=== PATIENT | female | born 1970 | race Caucasian/White ===

== ENCOUNTER → 2017-03-09 | Outpatient (CLI) | payer BC ==
[~2017-03-09] MED LIST: APRI28 PO; LORA5TAB3 PO
--- NOTE | 2017-03-09 10:10 | DIAGNOSTIC IMAGING REPORT ---
LEFT HIP UNILATERAL 2 VIEWS CLINICAL HISTORY: Left hip pain. COMPARISON STUDY: None. FINDINGS: No fracture or dislocation within the left hip. The visualized pelvic bones are intact. Soft tissues are unremarkable. The left hip cartilage spaces maintained. IMPRESSION: Unremarkable left hip. Electronically signed by: Deshaun Golden M.D. 03/09/2017 10:08 AM Dictated Date/Time: 03/09/2017 10:08 AM
--- NOTE | 2017-03-09 10:11 | DIAGNOSTIC IMAGING REPORT ---
SI JOINTS 3 OR MORE VIEWS CLINICAL HISTORY: Back and sacral pain. COMPARISON STUDY: None. FINDINGS: No fractures identified within the sacrum. Bilateral sacroiliac joints are within normal limits for age. No erosions identified. IMPRESSION: No significant abnormality within the bilateral sacroiliac joints. Electronically signed by: Deshaun Golden M.D. 03/09/2017 10:09 AM Dictated Date/Time: 03/09/2017 10:09 AM
--- NOTE | 2017-03-09 10:12 | DIAGNOSTIC IMAGING REPORT ---
LUMBAR SPINE 5 VIEWS HISTORY: Low back pain. COMPARISON: None. FINDINGS: There is no fracture. No subluxation. Pelvic calcifications are nonspecific but favor phleboliths. Mild facet osteoarthritis at L4-L5 and L5-S1. Mild disc space narrowing at L5-S1. Moderate disc space narrowing and endplate osteophytes at L2-L3. IMPRESSION: No fracture or subluxation within the lumbar spine. Degenerative changes as described above. Electronically signed by: Deshaun Golden M.D. 03/09/2017 10:11 AM Dictated Date/Time: 03/09/2017 10:09 AM
== END | disposition home or self-care (01) ==
LOC: C.RAD 09:29
PROVIDERS: ATTEND Nurse Practitioner
DX: M54.30 Sciatica, unspecified side (principal)

== ENCOUNTER → 2017-03-09 | Outpatient (CLI) | payer BC ==
--- NOTE | 2017-03-09 12:32 | MAMMOGRAPHY REPORT ---
BILATERAL DIGITAL DIAGNOSTIC MAMMOGRAM TOMOSYNTHESIS WITH CAD AND TARGETED RIGHT ULTRASOUND: 7 CLINICAL HISTORY: The patient reports a palpable right breast lump approximately 2 weeks ago, which f eels less prominent currently after starting her menstrual period. TECHNIQUE: Breast tomosynthesis in addition to standard 2D mammography was performed. Current study was also evaluated with a Computer Aided Detection (CAD) system. Bilateral CC and MLO 2-D and tomosy nthesis images were obtained. COMPARISON: Comparison is made to exams dated: 10/08/2013 mammogram, 04/02/2012 mammogram - [facility], and 05/12/2009. BREAST COMPOSITION: There are scattered areas of fibroglandular density in both breasts. FINDINGS: A triangle marker ahmadi the site of the palpable lump in the right 12:00 breast. There ar e no suspicious masses or other suspicious mammographic abnormalities in this region. The remainder of both breasts are stable compared to prior exams, without suspicious masses, calcifications, or are as of architectural distortion noted. Targeted ultrasound was performed of the area of the palpable lump pointed out by the patient. She c ould not pinpoint the exact location of the lump but pointed to the general region in the right 11 to 12:00 breast, approximately 4 cm from the nipple. Ultrasound of this region demonstrates sonographi bar normal tissue without evidence of a suspicious mass or other suspicious sonographic abnormality . IMPRESSION: ACR BI-RADS CATEGORY 1: NEGATIVE, TARGETED ULTRASOUND ACR BI-RADS CATEGORY 1: NEGATIVE No suspicious mammographic or sonographic abnormality at the site of the palpable right breast lump, which feels less prominent to the patient on today's exam. There is no mammographic or targeted sono graphic evidence of malignancy. Recommend clinical follow-up for the right breast lump, and recommen d routine bilateral screening mammograms in one year. The patient has been verbally notified of the results. Approximately 10% of breast cancers are not detected with mammography. A negative mammographic report should not delay biopsy if a clinically suggestive mass is present. Paulina Bolaños M.D. /:03/09/2017 09:16:03 Home Office Claim Specialist: Tresa Prieto, [facility] letter sent: Normal 1/2 BI-RADS Code: ACR BI-RADS Category 1: Negative Ultrasound BI-RADS: ACR BI-RADS Category 1: Negative
== END | disposition home or self-care (01) ==
LOC: C.MAMM 08:49
PROVIDERS: ATTEND Physician Assistant
DX: N63 Unspecified lump in breast (principal); M54.30 Sciatica, unspecified side

== ENCOUNTER → 2017-05-31 | Outpatient (CLI) | payer BC | END | disposition home or self-care (01) | LOC: C.PAPS 09:27 | PROVIDERS: ATTEND Obstetrics & Gynecology | DX: Z01.419 Encounter for gynecological examination (general) (routine) without abnormal findings (principal) ==

== ENCOUNTER → 2017-11-29 | Outpatient (CLI) | payer BC ==
[2017-11-29 12:17] LABS: BASO % 0.4 %; BASO ABS # 0.02 K/uL (0-0.2); EOS % 2.3 %; EOS ABS # 0.13 K/uL (0-0.5); HEMATOCRIT 39.8 % (37-47); HEMOGLOBIN 13.4 g/dL (12.0-16.0); LYMPH % 28.1 %; LYMPH ABS # 1.58 K/uL (1.2-3.4); MEAN CELL VOLUME 96.1 fL (80-100); MEAN CORPUSCULAR HEMOGLOBIN 32.4 pg (25-34); MEAN CORPUSCULAR HGB CONC 33.7 g/dl (32-36); MONO % 11.4 %; MONO ABS # 0.64 K/uL (0.11-0.59); NEUT % 57.8 %; NEUT ABS # 3.26 K/uL (1.4-6.5); PLATELET COUNT 323 K/uL (130-400); RED CELL DISTRIBUTION WIDTH CV 12.8 % (11.5-14.5); RED CELL DISTRIBUTION WIDTH SD 44.8 fL (36.4-46.3); WHITE BLOOD COUNT 5.63 K/uL (4.8-10.8)
[2017-11-29 12:28] LABS: ALBUMIN 4.3 gm/dl (3.4-5.0); ALT/SGPT 27 U/L (12-78); BLOOD UREA NITROGEN 16 mg/dl (7-18); CALCIUM 9.3 mg/dl (8.5-10.1); CARBON DIOXIDE 28 mmol/L (21-32); CHOLESTEROL 203 mg/dl (0-200); CREATININE 0.63 mg/dl (0.60-1.20); GLUCOSE 101 mg/dl (70-99); POTASSIUM 4.3 mmol/L (3.5-5.1); SODIUM 137 mmol/L (136-145)
[2017-11-29 12:37] LABS: ALKALINE PHOSPHATASE 46 U/L (45-117); AST/SGOT 19 U/L (15-37); LDL CHOLESTEROL CALCULATED 110 mg/dl; TOTAL PROTEIN 7.7 gm/dl (6.4-8.2)
== END | disposition home or self-care (01) ==
LOC: C.LABBFT 07:30
PROVIDERS: ATTEND Physician Assistant Medical
DX: R63.5 Abnormal weight gain (principal)

== ENCOUNTER → 2017-11-30 | Outpatient (CLI) | payer BC | END | disposition home or self-care (01) | LOC: C.LABBFT 07:31 | PROVIDERS: ATTEND Physician Assistant Medical | DX: Z00.00 Encounter for general adult medical examination without abnormal findings (principal) ==

== ENCOUNTER → 2017-12-14 | Outpatient (CLI) | payer BC ==
[2017-12-14 12:49] LABS: HEMOGLOBIN A1C 5.6 % (4.5-5.6)
== END | disposition home or self-care (01) ==
LOC: C.LABBFT 09:56
PROVIDERS: ATTEND Physician Assistant Medical
DX: Z00.00 Encounter for general adult medical examination without abnormal findings (principal)

== ENCOUNTER → 2018-04-22 | Outpatient (CLI) | payer BC | END | disposition home or self-care (01) | LOC: C.LABBFT 13:52 | PROVIDERS: ATTEND Internal Medicine | DX: G25.81 Restless legs syndrome (principal) ==

== ENCOUNTER 2020-07-16 06:09 | Observation (INO) ==
--- NOTE | 2020-07-09 15:07 | PAT Medication Instructions ---
Medication Instructions Date of Service July 09, 2020 Home Medications Medication Instructions Recorded furosemide 20 mg tablet 20 mg PO DAILY PRN #90 tab 03/07/19 ropinirole 0.5 mg tablet 0.5 mg PO HS #90 tab 05/07/20 norethindrone acetate 5 mg tablet 5 mg PO DAILY #60 tab 07/07/20 furosemide 20 mg tablet 20 mg PO DAILY PRN Protein Nutritional Shake 1 ea PO QPM Women's Multivitamin 1 tab PO HS multivitamin with minerals [Hair,Skin and Nails] 1 tab PO HS acetaminophen 500 mg tablet 1,000 mg PO BID PRN ibuprofen 200 mg tablet 800 mg PO BID PRN ropinirole 0.5 mg tablet 0.5 mg PO HS norethindrone acetate 5 mg tablet 5 mg PO DAILY ASK your surgeon for instructions ibuprofen 200 mg tablet 800 mg PO BID PRN norethindrone acetate 5 mg tablet 5 mg PO DAILY STOP taking 2 weeks before surgery multivitamin with minerals [Hair,Skin and Nails] 1 tab PO HS STOP taking 24 hours before surgery ropinirole 0.5 mg tablet 0.5 mg PO HS DO NOT take the morning of surgery furosemide 20 mg tablet 20 mg PO DAILY PRN Take morning of surgery With a small sip of water, OTHERWISE NOTHING TO EAT OR DRINK AFTER MIDNIGHT: acetaminophen 500 mg tablet 1,000 mg PO BID PRN (okay to take up to 4 hours prior to surgery if needed) Take evening before surgery Protein Nutritional Shake 1 ea PO QPM Women's Multivitamin 1 tab PO HS acetaminophen 500 mg tablet 1,000 mg PO BID PRN (if needed) Other Notes If you have any questions please call us at [phone] or [phone] or [phone] or [phone]
--- NOTE | 2020-07-12 09:01 | Anesthesiology Consultation ---
Date of Service July 12, 2020 Assessment & Plan (1) Encounter for pre-operative examination: - Per assessment on 07/12: Travel screen negative. No known COVID-19 positive contacts or current COVID-19 related symptoms. Surgeon arranging preop COVID testing. Awaiting results. - Check test AM DOS Chart Review Chart Review: Acceptable Risk for Surgery and Patient seen in Pre Admission Testing Teaching & Discussion Pre-Anesthesia Teaching/Discussion Notes: Instructed NPO after midnight before surgery,except medications with 15 cc of water. Medication instructions provided according to the PAT guidelines. History Surgery Operation Date: 07/16/20 07:30 Proposed Procedures p Robotic Total Laparoscopic Hysterectomy - Nimo Dobbs MD, FACOG Height/Weight Height: 5 ft 4 in Weight: 73.2 kg Allergies Allergy/AdvReac Type Severity Reaction Status Date / Time Penicillins Allergy Intermediate Hives Verified 07/09/20 09:25 Medications Home Medications Medication Instructions Recorded Confirmed Last Taken furosemide 20 mg tablet 20 mg PO DAILY PRN #90 tab 03/07/19 07/09/20 Unknown Protein Nutritional Shake 1 ea PO QPM 08/26/19 07/09/20 09/07/19 08:00 Women's Multivitamin 1 tab PO HS 08/26/19 07/09/20 09/07/19 08:00 multivitamin with minerals 1 tab PO HS 08/26/19 07/09/20 09/07/19 08:00 [Hair,Skin and Nails] acetaminophen 500 mg tablet 1,000 mg PO BID PRN 04/06/20 07/09/20 Unknown ibuprofen 200 mg tablet 800 mg PO BID PRN 04/06/20 07/09/20 Unknown ropinirole 0.5 mg tablet 0.5 mg PO HS #90 tab 05/07/20 07/09/20 Unknown norethindrone acetate 5 mg tablet 5 mg PO DAILY #60 tab 07/07/20 07/09/20 Unknown Past Medical History Medical History Arthritis Chronic back pain Enlarged uterus Restless leg syndrome Exercise / Class Metabolic Activity II 4-5 Yardwork/Stairs/Walk up hill Past Family History Family History Aunt Breast cancer maternal Mother , age 30 Colitis Brother Family hx colonic polyps Father Myocardial infarction Grandmother (Maternal) Ovarian cancer Other Coronary heart disease No family history of adverse response to anesthesia Prostate cancer Past Surgical History Surgical History H/O dilation and curettage History of bilateral tubal ligation History of colonoscopy History of endometrial ablation History of gynecologic surgery Cx cryosurgery History of hysteroscopy History of tooth extraction History of wisdom tooth extraction Status post fine needle aspiration left breast--benign Past Anesthesia History No Hx of Anesthesia Complications and No Family Hx of Anesthesia Complications History of PONV No Hx of PONV and No Hx of Motion Sickness Social History Smoking Status: Never smoker Do You Dip or Chew Tobacco: No Hx Alcohol Use: Yes Alcohol type: beer, wine and hard liquor alcohol intake frequency: a few times a month Hx Substance Use: No substance use type: does not use Review of Systems Patient denies chest pain, shortness of breath, dyspnea on exertion,fever, chills, cough, wheezing, palpitations. Physical Exam Vital Signs VITALS BP 113/71 P 62 TEMP 98.5 SP02 95%RA RESP 16 PHYSICAL Full neck and c-spine range of motion. Full TMJ range of motion. TMD 3.5 finger breaths Mallampati Score 2 Dentition: broken tooth on left lower tooth Lungs: clear throughout to auscultation Cardiac: regular rate and rhythm, no murmurs noted Spine: normal Extremities: no edema Testing Laboratory Results 07/12/20 09:15 07/12/20 09:15 Blood Type A Positive 07/12/20 09:15 Antibody Screen NEGATIVE 07/12/20 09:15 Electrocardiogram Date: 07/12/20 Findings: + SB @ (50)
[2020-07-12 11:00] LABS: Basophils # (auto) 0.02 K/uL (0-0.2); Basophils % (auto) 0.5 %; Eosinophils # (auto) 0.13 K/uL (0-0.5); Hematocrit (blood only) 37.7 % (37-47); Hemoglobin 12.8 g/dL (12.0-16.0); Lymphocytes # (auto) 1.71 K/uL (1.2-3.4); Mean Corpuscular Hemoglobin 32.8 pg (25-34); Mean Corpuscular Volume 96.7 fL (80-100); Mean Platelet Volume 10.1 fL (7.4-10.4); Monocytes # (auto) 0.55 K/uL (0.11-0.59); Monocytes % (auto) 12.5 %; Neutrophils # (auto) 1.98 K/uL (1.4-6.5); Platelet Count 330 K/uL (130-400); RDW Coefficient of Variation 12.7 % (11.5-14.5); RDW Standard Deviation 44.4 fL (36.4-46.3); White Blood Count 4.39 K/uL (4.8-10.8)
--- NOTE | 2020-07-12 11:18 | Electrocardiogram Report ---
Test Reason : Blood Pressure : / mmHG Vent. Rate : 050 BPM Atrial Rate : 050 BPM P-R Int : 146 ms QRS Dur : 098 ms QT Int : 414 ms P-R-T Axes : 041 073 051 degrees QTc Int : 377 ms Sinus bradycardia Otherwise normal ECG When compared with ECG of 17-DEC-2013 10:51, No significant change was found Confirmed by Micah Pino ([id number]) on 07/12/2020 11:17:37 AM Referred By: Nimo Dobbs Confirmed By:Dylan Pino
[2020-07-12 11:39] LABS: BUN Creatinine Ratio 10.4 (10-20); Calcium 9.2 mg/dl (8.5-10.1); Creatinine Clr Calc Pharmacy 93.5 ml/min; Est GFR (Non-African American) 100.1; Potassium 4.4 mmol/L (3.5-5.1)
[~2020-07-16 06:09] MED LIST changes: -APRI28 PO; +CIPROFLOXACIN / D5W 400 MG/200 ML BAG IV SCH; +LACTATED RINGER'S 1,000 ML IV SCH; -LORA5TAB3 PO; +LR 15ML/HR IV SCH; +metroNIDAZOLE 500 MG/100 ML BAG IV SCH
[2020-07-16] MEDS ORDERED: MIDAZOLAM HCL 1 MG/ML 2ML VIAL ONE (06:51)
[2020-07-16] MEDS ORDERED: fentaNYL citrate 100 MCG/2 ML VIAL ONE (06:51)
[2020-07-16] MEDS ORDERED: PROPOFOL IV EMULSION 10 MG/ML 20 ML VIAL IV ONE (06:51)
[2020-07-16] MEDS ORDERED: ONDANSETRON INJ 2 MG/ML 2 ML VIAL ONE (06:52)
[2020-07-16] MEDS ORDERED: DEXAMETHASONE SOD INJ 4 MG/ML VIAL ONE (06:52)
[2020-07-16] MEDS ORDERED: LIDOCAINE HCL 2% 2 ML VIAL/AMP(20MG/ML) INFIL ONE (06:52)
[2020-07-16] MEDS ORDERED: ROCURONIUM BROMIDE 10 MG/ML 5 ML VIAL IV ONE (06:52)
[2020-07-16] MEDS ORDERED: GLYCOPYRROLATE 0.2 MG/ML VIAL ONE (06:59)
[2020-07-16] MEDS ORDERED: NEOSTIGMINE METHYLSULFATE 5 MG/5 ML SYR ONE (06:59)
[2020-07-16] MEDS ORDERED: BUPIVACAINE 0.5 % 5 MG/1 ML MPF 30ML VIAL ONE (07:01)
--- NOTE | 2020-07-16 07:17 | History & Physical Bridge Note ---
Date of Service July 16, 2020 History & Physical Bridge Note I have examined the patient, reviewed the History & Physical and in the interval since the performance of the History & Physical I have noted the following changes of clinical significance: no changes noted
[2020-07-16] MEDS ORDERED: METHYLENE BLUE 0.5% 10 ML VIAL ONE (08:46)
[2020-07-16] MEDS ORDERED: HYDROmorphone INJ 2 MG/ML SYR/VIAL ONE (08:46)
[2020-07-16] MEDS ORDERED: PROMETHAZINE HCL 12.5 MG in SODIUM CHLORIDE 0.9% 50 ML IV PRN ×2 (09:20→12:22)
[2020-07-16] MEDS ORDERED: ePHEDrine sulfate 50 MG/ML AMP IV PRN (09:20)
[2020-07-16] MEDS ORDERED: METOCLOPRAMIDE HCL INJ 5 MG/ML 2 ML VIAL IV PRN (09:20)
[2020-07-16] MEDS ORDERED: ATROPINE SULFATE 0.1 MG/ML 10ML SYR IV PRN (09:20)
[2020-07-16] MEDS ORDERED: TISSEEL FIBRIN SEALANT 4ML TOP ONE (09:42)
--- NOTE | 2020-07-16 10:26 | Operative Report ---
PG Post Operative Report Pre & Post Diagnosis Operation Date: 07/16/20 07:30 Pre-Op Diagnosis: Abnormal Menses, Menorrhagia, Left ovarian Cyst Post-Op Diagnosis: Abnormal Menses, Menorrhagia, Left ovarian Cyst I identified the patient and participated in the time-out.: Yes Procedure Operation Date: 07/16/20 07:30 Actual Procedures p Robotic Assisted Total Laparoscopic Hysterectomy Bilateral Salpingectomy Left Oophorectomy with Excite Procedure, Cystoscopy(Not Applicable) - Nimo Dobbs MD, FACOG Surgeon Nimo Dobbs MD, FACOG Wire Coiler . Estimated Blood Loss 20 Findings Consistent with Post-Op Diagnosis Specimens Uterus right fallopian tube left adnexa cervix Description of Procedure Patient was given a general anesthetic, prepped and draped in dorsal lithotomy position in yellow fin evie stirrups. Care was taken to position the legs and arms properly with no excess pressure on any area. Pre-operative antibiotics were given and SCDs applied earlier. Joiner catheter was inserted into her bladder, V-Care manipluator was placed in the uterus and sutured in place. Gloves were changed and then a supra-umbilical incision was made with scalpel, using Marta technique, we dissected through the subcutaneous fat, fascia, split the rectus muscles and then entered the peritoneal cavity.. Blunt tip Marta Trochar then inserted and balloon inflated to stabilize the port. CO2 gas was then used to insufflate the peritoneal cavity. Findings. Enlarged uterus consistent with the estimate over 500 cm on ultrasound left ovarian cyst approximately 6 cm benign-appearing Deep tendelenberg position was obtained. 2 robotic ports were then placed, one on the left, one on the right side under direct visualization. 11mm bladeless accessory port placed in left upper quadrant under direct visualization. Robot docked. Arm #1 Monopolar janet, arm #2 Bipolar Maryland grasper. Fallopian tubes were identified and removed with the monoplar janet and removed thru the accessory port. Ureter was identified on each side and followed a normal course. Distal to the left ovary, the blood supply was coagulated with the bipolar Maryland and then cut with Janet. We were well away from the ureter. Round ligament was coagulated and then cut. Uterine vessels were then skeletonized, bladder flap was sharply dissected away with janet. Uterine vessels were then coagulated close to the cervix staying away from the left ureter. Vessels then cut. The exact same process was repeated on the right side taking note of the location of the right ureter at all times. Colpotomy was then performed with the monopolar janet, once completed, the specimen was removed through the vagina. A sponge in a glove was then placed in the vagina to maintain pneumoperitoneum. The specimen was too large to remove through the vagina as we placed in the upper quadrant of the peritoneal cavity. Instrument exchange then occurred. Arm #1 became the MERCEDEZ needle tank wagon driver, Arm # 2 became the tagga Grasper. 12 inch 2-0 V-Lock 90 day suture was placed through the accessory port. Cuff was closed from left to right, then back taking at least 1cm full thickness bites of vaginal mucosa. Suture was cut so there was no tail, needle removed through the accessory port. Sponge removed from the vagina and seal air tight. Generous irrigation and suction, hemostasis excellent, Tisseal applied to pedicles. Cystoscopy performed and no injury to the bladder, no sutures noted, good strong jets of blue colored dye were noted from both right and left ureter openings. Cystoscope removed and a new joiner catheter placed. Robot undocked, We then using a 5 mm laparoscope placed the larger umbilical port by first removing the Lara port under direct visualization a large specimen bag was then placed to this the specimen was grasped including the ovary which was attached to it into and placed into the bag at this stage we then were able to bring the specimen up to the umbilical incision a Kush retractor was placed within and then we used the excite technique to remove the specimen. This was done carefully methodically there were no perforations in the bag we ensured all material was removed from the bag and there was no damage to surrounding structures using the laparoscope to visualize after removal of the bag and the Kush retractor were removed. We did relook at the pelvis it was hemostatic at the vascular pedicle sites and at this stage removed all the ports gas was allowed to escape incisions injected with 0.5% Marcaine fascia closed with 0 Vicryl with a running suture in the umbilical incision as this fascia had been opened slightly to allow removal of the specimen. Suture stay ties were also tied over this and deep subcutaneous stitch into the left upper quadrant accessory port. 4 oh subicular Monocryl closures Dermabond applied urine clear at the end of the procedure , ports removed. gas allowed to escape. Incisions injected with Marcaine, fascia closed in the umbilical and a deep stitch into the accessory port with 0-Vicryl. . Sponge and instrument counts correct. I attest to the content of the Intraoperative Record and any orders documented therein. Any exceptions are noted below. Procedure Pre-op/Post-op diagnoses: Pre-Op/Post-Op Diagnoses Operation Date: 07/16/20 07:30 Pre-Op Diagnosis: Abnormal Menses, Menorrhagia, Left ovarian Cyst Post-Op Diagnosis: Abnormal Menses, Menorrhagia, Left ovarian Cyst Procedure: Procedures Operation Date: 07/16/20 07:30 Actual Procedures Side Surgeon p Robotic Assisted Total Laparoscopic Hysterectomy Bilateral Salpingectomy Left Oophorectomy with Excite Procedure, Cystoscopy Note, uterus much greater than 250g, and left salpingo-oophorectomy Not Applicable Nimo Dobbs MD, FACOG
[2020-07-16] MEDS: fentaNYL citrate 100 MCG/2 ML VIAL IV PRN ×2 (11:01→11:06)
[2020-07-16] MEDS: HYDROmorphone INJ 2 MG/ML SYR/VIAL IV PRN ×3 (11:11→11:21)
[2020-07-16] MEDS: ONDANSETRON INJ 2 MG/ML 2 ML VIAL IV PRN ×2 (11:15→11:22)
[2020-07-16] MEDS: LACTATED RINGER'S 1,000 ML IV SCH ×2 (12:00→21:04)
--- NOTE | 2020-07-16 12:06 | Anesthesiology Progress Note ---
Date of Service July 16, 2020 Anesthesia Post Procedure Vital Signs Vital Signs: Temp Pulse Pulse Resp BP BP Pulse Ox 07/16/20 11:50 36.8 C 70 16 105/62 99 07/16/20 11:40 36.8 C 57 L 16 111/66 97 07/16/20 11:30 36.8 C 68 12 128/69 99 07/16/20 11:20 57 L 17 124/62 100 07/16/20 11:10 62 17 135/69 97 07/16/20 11:00 68 16 130/75 98 07/16/20 10:50 75 16 124/71 100 07/16/20 10:40 85 14 136/72 100 07/16/20 10:33 36.4 C L 75 10 L 133/78 100 07/16/20 06:58 37.0 C 75 20 133/84 100 Pain Intensity Abdomen: Pain Intensity: 3 Transfer of Care Handoff Completed per policy Notes Mental Status: alert / awake / arousable and participated in evaluation Patient Amnestic to Procedure: Yes Nausea / Vomiting: adequately controlled Pain: adequately controlled Airway Patency, RR, SpO2: stable & adequate BP & HR: stable & adequate Hydration State: stable & adequate Anesthetic Complications: no major complications apparent
[2020-07-16] MEDS ORDERED: bisacodyL 10 MG SUPP PR PRN (12:22)
[2020-07-16] MEDS ORDERED: MEPERIDINE HCL 50 MG/ML CARP IV PRN (12:22)
[2020-07-16] MEDS ORDERED: ZOLPIDEM TARTRATE 5 MG TAB PO PRN (12:22)
[2020-07-16] MEDS ORDERED: oxyCODONE/ACETAMINOPHEN 5mg/325mg TAB PO PRN ×2 (12:22)
[2020-07-16] MEDS ORDERED: KETOROLAC 30 MG/ML VIAL IV PRN (12:22)
[2020-07-16] MEDS ORDERED: MAGNESIUM HYDROXIDE SUSP 30 ML UDC PO PRN (12:22)
[2020-07-16] MEDS ORDERED: ONDANSETRON INJ 2 MG/ML 2 ML VIAL IV PRN (12:22)
[2020-07-16] MEDS: IBUPROFEN 600 MG TAB PO PRN ×2 (17:20→21:08)
[2020-07-16] MEDS ORDERED: ACETAMINOPHEN 325 MG TAB PO PRN (19:22)
[2020-07-16 20:23] LABS: Hematocrit (blood only) 32.6 % (37-47); Hemoglobin 10.9 g/dL (12.0-16.0)
[2020-07-16] MEDS: DOCUSATE SODIUM 100 MG CAP PO SCH (21:03)
[2020-07-17] MEDS: IBUPROFEN 600 MG TAB PO PRN (01:44)
[2020-07-17 06:32] LABS: Basophils # (auto) 0.01 K/uL (0-0.2); Basophils % (auto) 0.1 %; Eosinophils # (auto) 0.02 K/uL (0-0.5); Eosinophils % (auto) 0.2 %; Hemoglobin 10.7 g/dL (12.0-16.0); Immature Granulocytes # (auto) 0.02 K/uL (0.00-0.02); Immature Granulocytes % (auto) 0.2 %; Lymphocytes # (auto) 1.95 K/uL (1.2-3.4); Lymphocytes % (auto) 16.9 %; Mean Corpuscular Hemoglobin 32.5 pg (25-34); Mean Corpuscular Hgb Conc 33.4 g/dL (32-36); Mean Corpuscular Volume 97.3 fL (80-100); Mean Platelet Volume 9.5 fL (7.4-10.4); Monocytes # (auto) 1.12 K/uL (0.11-0.59); Monocytes % (auto) 9.7 %; Neutrophils % (auto) 72.9 %; Platelet Count 270 K/uL (130-400); RDW Coefficient of Variation 12.9 % (11.5-14.5); RDW Standard Deviation 46.1 fL (36.4-46.3); Red Blood Count 3.29 M/uL (4.2-5.4); White Blood Count 11.52 K/uL (4.8-10.8)
--- NOTE | 2020-07-17 07:49 | Gynecologic Progress Note ---
Date of Service July 17, 2020 Assessment & Plan Admission and Anticipated Discharge Date Admission Date: July 16, 2020 Subjective Postop day #1 from total laparoscopic hysterectomy the patient is feeling well she is ambulating tolerating an oral diet she is voiding well and around passing gas she has no extremity pain her pain in her abdomen is well controlled she has no vaginal bleeding Physical exam vital signs are stable she is afebrile abdomen is soft and nontender good bowel sounds extremity exam is negative incisions clean dry and intact Impression plan discharge home reviewed instructions patient to contact us with any concerns Results & Data ([facility]) Vital Signs (Past 12 Hours) Vital Signs Temp Pulse Resp BP Pulse Ox 07/17/20 00:20 98.8 F 69 16 106/62 95 07/16/20 19:50 97.7 F 64 18 123/74 98 PG Care Time/CCT Total # of Minutes Spent Total Time Spent with Patient: Total time spent is greater than 50% in coordination of care (as documented) at patient's floor/unit and/or counseling patient: Coding Level of Care Code None
[2020-07-17] MEDS: DOCUSATE SODIUM 100 MG CAP PO SCH (09:18)
--- NOTE | 2020-07-20 07:26 | Discharge Summary ---
Date of Service July 20, 2020 Admission HPI Per Admitting Provider Patient had a total laparoscopic hysterectomy on July 16 this was uncomplicated the patient met discharge criteria the next day Discharge Data Procedures Performed Operation Date: 07/16/20 07:30 Actual Procedures p Robotic Assisted Total Laparoscopic Hysterectomy Bilateral Salpingectomy Left Oophorectomy with Excite Procedure(Not Applicable) - Nimo Dobbs MD, AURA s Cystoscopy(Not Applicable) - Nimo Dobbs MD, FACOG Hospital Course (1) Abnormal menses: By postoperative day number 1 in the morning the patient was ambulating tolerating an oral diet she had minimal pain she had no extremity pain no bleeding she was voiding well she met discharge criteria discharge instructions were carefully reviewed with the patient patient was told to contact the office for follow-up and call sooner with any problems Coding Level of Care Code None Diagnoses Abnormal menses N92.6
== END 2020-07-17 09:20 | disposition home or self-care (01) ==
LOC: ASU 06:09 → 4N 06:09

== ENCOUNTER 2023-12-01 08:31 | Observation (INO) ==
--- NOTE | 2023-12-01 09:11 | Emergency Department Note ---
Impression & Plan Syncope and collapse, Colitis, Leukocytosis ED Provider Note HISTORY OF PRESENT ILLNESS: Patient is a 53-year-old female presenting with lower abdominal cramping and bright red bloody bowel movements. Patient reports that last night her and her had gone out to dinner and when they returned home she started having cramping and spasming of her lower abdomen and felt like she had to run to the bathroom. She reportedly got on the commode and then had a syncopal episode in which she fell face first onto the ground. Patient reports she woke up on the ground and then was able to get back on the commode. She states that she was feeling generally unwell throughout the night and had multiple bright red bloody bowel movements. She reports that she got up at 3 AM to have a bowel movement and she again passed out. She is currently complaining of cramping pain diffusely across her lower abdomen. She is not currently on any anticoagulation. However, she has been taking around 1800 mg of ibuprofen daily for the last month for plantar fasciitis treatment. She is also complaining of a burning sensation in her substernal region. Denies any shortness of breath. Denies any significant nausea at this time. She had a colonoscopy 1.5 months ago in which polyps were removed. She denies any abdominal surgical history other than a hysterectomy. ROS: as above PHYSICAL EXAM: Constitutional: Patient appears in no acute distress. HENT: Head: Normocephalic and atraumatic. Eyes: EOMI, PERRL Mouth/Throat: Mucous membranes moist. Neck: Trachea midline. Neck supple. Cardiovascular: RRR, No murmurs, rubs or gallops. Intact distal pulses. Pulmonary/Chest: No respiratory distress. Breath sounds clear and equal bilaterally. No wheezes or rales. Abdominal: Abdomen soft, no tenderness, rebound or guarding. Musculoskeletal: No edema, tenderness or deformity noted. Skin: Warm and dry. No rash, erythema, pallor or cyanosis Psychiatric: Appropriate mood and affect for situation. Neurological: Alert and keenly responsive. CN II-XII grossly intact, moving all extremities equally and fully. MDM: - Vitals signs stable. - History obtained via patient. History as above. - Chronic conditions affecting care: DM-2 - Differential diagnoses include, but are not limited to: ACS; dysrhythmia; diverticular bleed; anemia; electrolyte abnormality; dehydration; hemorrhoidal bleed - Order placed for continuous cardiac monitoring. At this time, monitor showed rate of 71 bpm with normal sinus rhythm, per my interpretation. - External medical records reviewed. Primary care visit note dated 10/25/2023 was reviewed. Patient was started on omeprazole at her clinic appointment, given her heartburn symptoms and use of ibuprofen. - EKG interpreted by myself showed normal sinus rhythm. Rate 65 bpm. QT 394. No acute ischemic changes. - Laboratory workup interpreted by myself showed leukocytosis (WBC 14.89) with left shift; normal PT/INR; stable hemoglobin; stable electrolytes; normal troponin; normal lipase - CXR negative for pneumonia, per my interpretation. - CTA abdomen/pelvis showed non-specific colitis of transverse colon. - Patient given 1L NS and 40 mg IV pantoprazole in ER. - Discussed results with patient. Given her multiple episodes of syncope, will admit to hospitalist service. - Discussion was had with case management associate about patient's case and need for admission - Hospitalist, Dr. Avendano, consulted for admission - Patient admitted to [facility] hospitalist service for further evaluation and management. ASSESSMENT AND PLAN: Diagnosis: syncope and collapse; colitis; leukocytosis Plan: admit Past Med/Surg History Medical History (Updated 12/01/23 @ 12:31 by Deena De Anda MD) Hot flashes History of COVID-19 2019- no hosp; resolved Prediabetes pt unaware Arthritis Chronic back pain Restless leg syndrome Surgical History History of robot-assisted laparoscopic hysterectomy History of colonoscopy H/O dilation and curettage History of gynecologic surgery Cx cryosurgery Status post fine needle aspiration left breast--benign History of bilateral tubal ligation History of tooth extraction History of wisdom tooth extraction History of endometrial ablation History of hysteroscopy Family History Aunt Breast cancer Mother Colitis Brother Family hx colonic polyps Father Myocardial infarction Grandmother (Maternal) Ovarian cancer Other Coronary heart disease No family history of adverse response to anesthesia Prostate cancer Social History Smoking Status: Never smoker Second Hand Exposure: Yes ( smoked/father smoked); Do You Dip or Chew Tobacco: No; Hx Alcohol Use: No Hx Substance Use: No Preferred Language: Vietnamese Communication Ability: Effective 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: No Beliefs That Will Affect Care: None marital status: Current Living Situation: Spouse Current Living Situation Comment: Lives with and 3 kids current occupational status: employed 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 Feels Safe at Home: Yes Dental Care, Regularly: Yes Physical Activity Frequency: 5-6 Times per Week Assistive Devices: None Allergies Allergies Allergy/AdvReac Type Severity Reaction Status Date / Time Penicillins Allergy Intermediate Hives Verified 12/01/23 09:26 cortisone Allergy RASH/RESTLESSNESS/NUMBNESS Verified 12/01/23 09:26 OF LIPS & NOSE Home Meds Home Medications Medication Instructions Recorded Confirmed acetaminophen 500 mg tablet 1,000 mg PO Q6H PRN Pain 08/19/20 12/01/23 (Tylenol Extra Strength) ibuprofen 200 mg tablet 600 mg PO TID Foot Pain 08/19/20 12/01/23 multivitamin 1 tab PO DAILY 04/12/23 12/01/23 magnesium 250 mg tablet 250 mg PO HS 10/04/23 12/01/23 metformin 500 mg tablet 500 mg PO BID 12/01/23 12/01/23 Previous Rx's Medication Instructions Recorded omeprazole 20 mg capsule,delayed 20 mg PO DAILY #90 caps 10/26/23 release Results & Data (ED) Vital Signs Vital Signs - 24 hr 12/01/23 08:40 12/01/23 08:51 12/01/23 08:58 Temperature 36.4 C L Temperature Source Oral Pulse Rate 78 70 Pulse Rhythm Respiratory Rate 16 Respiratory Effort / Characteristics Non-Labored Respiratory Depth Normal Blood Pressure 130/78 Blood Pressure Mean 95 Pulse Oximetry 100 Oxygen Delivery Method Room Air Room Air Sepsis Recent Fever Within 48 Hours No Sepsis New/Unexplained Change in Mental Status N/A Sepsis Action Taken by Nursing No Action Required 12/01/23 09:00 12/01/23 09:17 12/01/23 10:00 Temperature Temperature Source Pulse Rate 73 68 71 Pulse Rhythm Regular Respiratory Rate 19 12 23 Respiratory Effort / Characteristics Respiratory Depth Blood Pressure 122/71 132/74 Blood Pressure Mean 88 93 Pulse Oximetry 99 98 97 Oxygen Delivery Method Room Air Room Air Room Air Sepsis Recent Fever Within 48 Hours Sepsis New/Unexplained Change in Mental Status Sepsis Action Taken by Nursing Laboratory Data 12/01/23 09:01 12/01/23 09:01 Lab Results 12/01/23 12/01/23 Range/Units 09:01 09:15 WBC 14.89 H (4.8-10.8) K/ul RBC 4.26 (4.20-5.40) M/uL Hgb 13.4 (12.0-16.0) g/dl Hct 39.7 (37.0-47.0) % MCV 93.2 (80.0-100.0) fL MCH 31.5 (25.0-34.0) pg MCHC 33.8 (32.0-36.0) g/dL RDW Std Deviation 40.7 (36.4-46.3) fL RDW Coeff of Francisca 11.9 (11.5-14.5) % Plt Count 328 (130-400) K/uL MPV 9.6 (9.4-12.4) fL Immature Gran % (Auto) 0.4 % Neut % (Auto) 82.2 % Lymph % (Auto) 10.1 % Evans % (Auto) 7.1 % Eos % (Auto) 0.1 % Baso % (Auto) 0.1 % Neut # (Auto) 12.24 H (1.40-6.50) K/uL Lymph # (Auto) 1.51 (1.20-3.40) K/uL Evans # (Auto) 1.05 H (0.11-0.59) K/uL Eos # (Auto) 0.01 (0.00-0.50) K/uL Baso # (Auto) 0.02 (0.00-0.20) K/uL Immature Gran # (Auto) 0.06 (0.01-0.20) K/uL PT 10.4 (9.0-12.0) Seconds INR 0.9 (0.9-1.1) APTT 24 (21-31) Seconds PTT Ratio 0.9 Sodium 137 (136-145) mmol/L Potassium 4.6 (3.5-5.1) mmol/L Chloride 105 (98-107) mmol/L Carbon Dioxide 26 (21-32) mmol/L Anion Gap 6 (3-11) BUN 23 (6-23) mg/dl Creatinine 0.59 L (0.6-1.2) mg/dl Est Cr Clr Drug Dosing 110.1 ml/min Est GFR ( Amer) 119.6 ml/min Est GFR (Non-Af Amer) 103.2 ml/min BUN/Creatinine Ratio 39.0 H (10-20) Glucose 135 H (70-99(Fasting)) mg/dl Calcium 9.5 (8.6-10.3) mg/dl Total Bilirubin 0.3 (0.2-1.0) mg/dl AST 18 (13-39) U/L ALT 16 (7-52) U/L Alkaline Phosphatase 76 (34-104) U/L Troponin I High Sens 2.7 (0-14) pg/ml Total Protein 7.8 (6.0-8.3) gm/dl Albumin 4.8 (3.4-5.0) gm/dl Globulin 3.0 (2.5-4.0) gm/dl Albumin/Globulin Ratio 1.6 (0.9-2) Lipase 35 (11-82) U/L Blood Type A Positive Antibody Screen NEGATIVE Administered Medications Discontinued Medications Pantoprazole Sodium 40 mg/ (Syringe) 10 mls @ 5 mls/min IV NOW ONE Stop: 12/01/23 09:07 Last Admin: 12/01/23 09:30 Dose: 5 mls/min Documented By: PAOLA Sodium Chloride (Nss) 1,000 mls @ 999 mls/hr IV .Q1H1M ASH Stop: 12/01/23 10:15 Last Infusion: 12/01/23 10:31 Dose: Infused Documented By: Admin: 12/01/23 09:25 Dose: 999 mls/hr Documented By: PAOLA Ioversol (Optiray 350 500ml) 113 ml IV ONCE ONE Stop: 12/01/23 09:53 Last Admin: 12/01/23 09:55 Dose: 113 ml Documented By: CHU Imaging Data Radiologist's Impression: Abdomen/Pelvis CTA 12/01/23 09:06 CT ANGIOGRAPHY OF THE ABDOMEN AND PELVIS CLINICAL HISTORY: Multiple episodes of grossly blood stool; syncope. COMPARISON STUDY: Arterial phase images of the liver, spleen, adrenal glands and kidneys Automated exposure control was utilized for the study. A dose lowering technique was utilized adhering to the principles of ALARA. FINDINGS: Lung bases are normal. The caliber of the abdominal aorta is normal. No pathologic right plaque is identified. The celiac axis, superior mesenteric artery, inferior mesenteric artery, renal arteries, bilateral common iliac, internal iliac, external iliac and common femoral arteries are patent. There is no stenosis or dissection within these vessels. There is no aneurysm within the abdomen or pelvis. Arterial phase images of the liver, spleen, adrenal glands, kidneys and pancreas are unremarkable. There is no biliary or pancreatic ductal dilatation. There is no hydronephrosis. There is no evidence for a bowel obstruction. The appendix is normal. There is moderate circumferential wall thickening of the majority of the transverse colon with minimal pericolonic stranding. This wall thickening extends for 13 cm. There is no free air or abscess. No additional sites of bowel wall thickening are present. Pelvic calcifications represent phleboliths. There is no lymphadenopathy. IMPRESSION: 1. Wall thickening of the transverse colon with minimal pericolonic stranding. This suggests a nonspecific colitis which could be infectious, ischemic or inflammatory in etiology. No free air or abscess. A precautionary nonemergent colonoscopy, if not recently performed, is recommended to exclude the unlikely possibility of an underlying mucosal lesion. 2. No additional sites of bowel wall thickening. Normal appendix. No bowel obstruction. 3. Normal caliber abdominal aorta with patent branch vessels. No dissection or aneurysm within the abdomen or pelvis. ACT 112: Negative or not required by law. Electronically signed by: Gaudencio Prasad M.D. 12/01/2023 10:08 AM Chest X-Ray 12/01/23 09:06 XR chest 1V portable CLINICAL HISTORY: Syncope. COMPARISON STUDY: Chest radiograph August 19, 2020. FINDINGS: Lung volumes are normal. Lungs are clear. There is no pneumothorax or pleural effusion. Cardiac size is normal. Mediastinal contours are normal. There is no evidence for pulmonary edema. IMPRESSION: No acute cardiopulmonary findings. ACT 112: Negative or not required by law. Electronically signed by: Gaudencio Prasad M.D. 12/01/2023 9:43 AM Discharge Plan Visit Data Chief Complaint: Rectal Bleed Stated Complaint: SYNCOPE, RECTAL BLEED ED Provider: Deena De Anda Discharge Problem: Syncope and collapse, Colitis, Leukocytosis Forms Stand Alone Forms: [facility] Orche[employer] Prescriptions Prescriptions: No Action omeprazole 20 mg capsule,delayed release(DR/EC) 20 mg PO DAILY Qty: 90 0RF ibuprofen 200 mg Tablet 600 mg PO TID acetaminophen [Tylenol Extra Strength] 500 mg Tablet 1,000 mg PO Q6H PRN (Reason: Pain) multivitamin Tablet 1 tab PO DAILY magnesium 250 mg Tablet 250 mg PO HS metformin 500 mg Tablet 500 mg PO BID Referrals Referrals: Florida Hernandez DO [Primary Care Provider] -
[2023-12-01 09:24] LABS: Basophils # (auto) 0.02 K/uL (0.00-0.20); Basophils % (auto) 0.1 %; Eosinophils # (auto) 0.01 K/uL (0.00-0.50); Eosinophils % (auto) 0.1 %; Hematocrit (blood only) 39.7 % (37.0-47.0); Hemoglobin 13.4 g/dl (12.0-16.0); Immature Granulocytes # (auto) 0.06 K/uL (0.01-0.20); Immature Granulocytes % (auto) 0.4 %; Lymphocytes # (auto) 1.51 K/uL (1.20-3.40); Lymphocytes % (auto) 10.1 %; Mean Corpuscular Hemoglobin 31.5 pg (25.0-34.0); Mean Corpuscular Hgb Conc 33.8 g/dL (32.0-36.0); Mean Corpuscular Volume 93.2 fL (80.0-100.0); Mean Platelet Volume 9.6 fL (9.4-12.4); Monocytes # (auto) 1.05 K/uL (0.11-0.59); Monocytes % (auto) 7.1 %; Neutrophils # (auto) 12.24 K/uL (1.40-6.50); Neutrophils % (auto) 82.2 %; Platelet Count 328 K/uL (130-400); RDW Coefficient of Variation 11.9 % (11.5-14.5); RDW Standard Deviation 40.7 fL (36.4-46.3); Red Blood Count 4.26 M/uL (4.20-5.40); White Blood Count 14.89 K/ul (4.8-10.8)
[2023-12-01] MEDS: SODIUM CHLORIDE 0.9% 1,000 ML IV SCH (09:25)
[2023-12-01] MEDS: PANTOprazole 40 MG in SYRINGE 0 ML IV ONE (09:30)
[2023-12-01 09:33] LABS: Albumin Globulin Ratio 1.6 (0.9-2); Albumin Level 4.8 gm/dl (3.4-5.0); Bilirubin,Total 0.3 mg/dl (0.2-1.0); Calcium 9.5 mg/dl (8.6-10.3); Creatinine Clr Calc Pharmacy 110.1 ml/min; Est GFR (African American) 119.6 ml/min; Est GFR (Non-African American) 103.2 ml/min; Potassium 4.6 mmol/L (3.5-5.1); Total Protein 7.8 gm/dl (6.0-8.3)
[2023-12-01 09:38] LABS: Troponin I High Sensitivity 2.7 pg/ml (0-14)
[2023-12-01 09:45] LABS: INR 0.9 (0.9-1.1); Partial Thromboplastin Ratio 0.9; Partial Thromboplastin Time 24 Seconds (21-31); Prothrombin Time 10.4 Seconds (9.0-12.0)
--- NOTE | 2023-12-01 09:45 | XRay Report ---
XR chest 1V portable CLINICAL HISTORY: Syncope. COMPARISON STUDY: Chest radiograph August 19, 2020. FINDINGS: Lung volumes are normal. Lungs are clear. There is no pneumothorax or pleural effusion. Car diac size is normal. Mediastinal contours are normal. There is no evidence for pulmonary edema. IMPRESSION: No acute cardiopulmonary findings. ACT 112: Negative or not required by law. Electronically signed by: Gaudencio Prasad M.D. 12/01/2023 9:43 AM
[2023-12-01] MEDS: OPTIRAY 350 500ml IV ONE (09:55)
--- NOTE | 2023-12-01 10:10 | CT Scan Report ---
CT ANGIOGRAPHY OF THE ABDOMEN AND PELVIS CLINICAL HISTORY: Multiple episodes of grossly blood stool; syncope. COMPARISON STUDY: Arterial phase images of the liver, spleen, adrenal glands and kidneys Automated e xposure control was utilized for the study. A dose lowering technique was utilized adhering to the p rinciples of HARDY. FINDINGS: Lung bases are normal. The caliber of the abdominal aorta is normal. No pathologic right pl aque is identified. The celiac axis, superior mesenteric artery, inferior mesenteric artery, renal ar teries, bilateral common iliac, internal iliac, external iliac and common femoral arteries are patent . There is no stenosis or dissection within these vessels. There is no aneurysm within the abdomen or pelvis. Arterial phase images of the liver, spleen, adrenal glands, kidneys and pancreas are unremar kable. There is no biliary or pancreatic ductal dilatation. There is no hydronephrosis. There is no e vidence for a bowel obstruction. The appendix is normal. There is moderate circumferential wall thick ening of the majority of the transverse colon with minimal pericolonic stranding. This wall thickenin g extends for 13 cm. There is no free air or abscess. No additional sites of bowel wall thickening ar e present. Pelvic calcifications represent phleboliths. There is no lymphadenopathy. IMPRESSION: 1. Wall thickening of the transverse colon with minimal pericolonic stranding. This suggests a nonspe cific colitis which could be infectious, ischemic or inflammatory in etiology. No free air or abscess . A precautionary nonemergent colonoscopy, if not recently performed, is recommended to exclude the u nlikely possibility of an underlying mucosal lesion. 2. No additional sites of bowel wall thickening. Normal appendix. No bowel obstruction. 3. Normal caliber abdominal aorta with patent branch vessels. No dissection or aneurysm within the ab domen or pelvis. ACT 112: Negative or not required by law. Electronically signed by: Gaudencio Prasad M.D. 12/01/2023 10:08 AM
--- NOTE | 2023-12-01 12:23 | History & Physical Report ---
Date of Service December 01, 2023 Assessment & Plan (1) Syncope and collapse: Plan: -Admit to med/tele -Currently stable and non-toxic appearing -Presented to the ED after sustaining 2 episodes of syncope while or shortly after having bowel movements -Her history is consistent with recurrent vasovagal episodes, has never had a syncopal episode without associated pain or stress -Denies recent chest pain, dizziness, SOB, palpitations -ECG shows NSR, no murmur on exam, high sen trop WNL, low suspicion for cardiac etiology at this time -No reported seizure-like activity -Denies any recent symptoms while changing positions or with activity -Neuro exam is non-focal, will hold off on head imaging at this time -S/P 1L NSS in the ED, we will keep her on maintenance LR overnight while NPO except meds -Fall precautions, OOB with assistance, am orthostatic vitals -BL JUSTIN's for DVT PPX -NPO except meds due to acute colitis -AM CBC, CMP, mag, PT/INR (2) Colitis: Plan: -CTA of the abd/pelvis noted to have nonspecific thickening in the transverse colon consistent with colitis -Patient is currently resting comfortably in bed, no signs of pain out of proportion of the exam to suggest ischemic colitis at this time -Last colonoscopy was on 10/12/23, findings were significant for a 5 mm polyp in the descending colon which was resected and non-bleeding internal hemorrhoids. -Could be infectious with possible food poisoning or related to her high dose NSAID use over the past month -Noted one episode of melanotic stool prior to her episode of bright red bleeding with a large clot in her last BM -Not on anticoagulation -Will hold abx for now and follow stool studies -Will obtain STAT lactate -Follow infectious wokup -Will continue 40 mg IV pantoprazole BID for now until upper GI bleed is ruled out -Will order a repeat CBC this afternoon to monitor for large Hgb drop -Will hold GI consult for now (3) Bright red rectal bleeding: Plan: -Follow fecal occult blood screen ordered in the ED -Rest of care per colitis plan (4) Abdominal pain: Plan: -Likely due to her acute, non-specific colitis -Pain is currently controlled -Continue prn Tylenol for now (5) Prediabetes: Plan: -Has been on metformin -Last Hgb A1c on 05/04/23 was 5.9 -Monitor BSG q6h while NPO, goal is 110-160 -Start CF of 50 q6h for now -Adjust regimen as needed (6) Restless legs: Plan: -Continue Requip Plan The patient was discussed with Dr. Avendano at the time of the admission History of Present Illness Chief Complaint: abd pain, blood BM's, recurrent syncope Primary Care Provider: [place] Hernandez DO Samra Bello is a 53 year old female with a PMH significant for pre- diabetes and arthritis who presented to the [facility] ED on 12/01/23 with complaints of multiple episodes of bloody bowel movements, low abdominal pain, and syncope x 2 at home. She remained stable in the ED. Labs were significant for a leukocytosis of 14 with neutrophil predominance of 12 nut otherwise WNL. Chest xray was read as negative for acute findings. CTA of the abd/pelvis was read as 1. Wall thickening of the transverse colon with minimal pericolonic stranding. This suggests a nonspecific colitis which could be infectious, ischemic or inflammatory in etiology. No free air or abscess. A precautionary nonemergent colonoscopy, if not recently performed, is recommended to exclude the unlikely possibility of an underlying mucosal lesion. 2. No additional sites of bowel wall thickening. Normal appendix. No bowel obstruction. 3. Normal caliber abdominal aorta with patent branch vessels. No dissection or aneurysm within the abdomen or pelvis. Prior to admission the patient was given 40 mg IV pantoprazole and 1L NSS. At the time of the exam the patient was lying in bed in no acute distress with her sitting bedside, history was obtained from both. Last night then went out for dinner, the patient had a beer battered fish meal. Shortly after finishing her meal the patient started to develop BL lower abdominal pain and the sensation that she needed to have a bowel movement. Shortly after arriving home she had to run to the bathroom. While on the toilet she had a large, formed bowel movement. She states that the end of her BM looked darker than normal but denies any bright red blood. Shortly after having the bowel movement, and while still sitting on the toilet the patient started to experience severe lower abdominal pain, feeling hot/flushes, and became nauseous. She grabbed a ceramic trash can as she thought she was going to vomit. She then lost consciousness and fell forward off the toilet. She believes that she hit her head off the ceramic trash can. Her found her on the bathroom floor shortly after he entered their home. She woke up quickly and was without seizure like symptoms or postictal state. Overnight she had two loose bowel movements with associated BL lower abdominal pain. She states that both of these loose bowel movements had bright red blood in the toilet. She had another syncopal episode exactly like the first, after her second bowel movement. Her last bowel movement, around 0300 this am had a large blood clot. She has been taking approximately 1800 mg of Ibuprofen daily, for the past 30 days due to pain from plantar fascitis. She denies symptoms such as changes in vision, hearing, taste, smell, unilateral weakness, paresthesias, chest pain, SOB, heart palpitations, cough, vomiting, hemoptysis, dysuria, hematuria, LE swelling, and recent trauma. She has had episodes of syncope in the past as well. These have always been associated with episodes of pain or severe stress/anxiety. They deny the patient having sudden episodes of syncope without symptoms prior. Her only complaint at this time is a moderate headache. -Last colonoscopy was on 10/12/23, findings were significant for a 5 mm polyp in the descending colon which was resected and non-bleeding internal hemorrhoids. Please refer to Dr. Avendano's attestation for any changes to the treatment plan Allergies Allergy/AdvReac Type Severity Reaction Status Date / Time Penicillins Allergy Intermediate Hives Verified 12/01/23 09:26 cortisone Allergy RASH/RESTLESSNESS/NUMBNESS Verified 12/01/23 09:26 OF LIPS & NOSE Home Medications Medication Instructions Recorded Confirmed Type acetaminophen 500 mg tablet 1,000 mg PO Q6H PRN Pain 08/19/20 12/01/23 History (Tylenol Extra Strength) ibuprofen 200 mg tablet 600 mg PO TID Foot Pain 08/19/20 12/01/23 History multivitamin 1 tab PO DAILY 04/12/23 12/01/23 History magnesium 250 mg tablet 250 mg PO HS 10/04/23 12/01/23 History omeprazole 20 mg capsule,delayed 20 mg PO DAILY #90 caps 10/26/23 12/01/23 Rx release metformin 500 mg tablet 500 mg PO BID 12/01/23 12/01/23 History Past Med/Surg History Medical History (Updated 12/01/23 @ 12:54 by Mahamed Erickson PA-C) Hot flashes History of COVID-19 2020- no hosp; resolved Prediabetes pt unaware Arthritis Chronic back pain Restless leg syndrome Surgical History History of robot-assisted laparoscopic hysterectomy History of colonoscopy H/O dilation and curettage History of gynecologic surgery Cx cryosurgery Status post fine needle aspiration left breast--benign History of bilateral tubal ligation History of tooth extraction History of wisdom tooth extraction History of endometrial ablation History of hysteroscopy Family History Aunt Breast cancer Mother Colitis Brother Family hx colonic polyps Father Myocardial infarction Grandmother (Maternal) Ovarian cancer Other Coronary heart disease No family history of adverse response to anesthesia Prostate cancer Social History Smoking Status: Never smoker Second Hand Exposure: No; Do You Dip or Chew Tobacco: No; Tobacco Cessation Education Requested by Patient: No Hx Alcohol Use: No Hx Substance Use: No Preferred Language: Burkinan Communication Ability: Effective Account Executive Trainee Required: No Beliefs That Will Affect Care: None marital status: Current Living Situation: Spouse Current Living Situation Comment: Lives with and 3 kids current occupational status: employed 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 Other Information That Helps Us Care for You: No Feels Safe at Home: Yes Safety Concerns: Feels Safe At This Time Dental Care, Regularly: Yes Physical Activity Frequency: 5-6 Times per Week Assistive Devices: Glasses Physical Exam Physical Exam: Physical Exam: General: In no acute distress, stated age, well-nourished, good hygiene, non- toxic appearing HEENT: Normocephalic, atraumatic, no scleral icterus, pupils around round, symmetrical, and reactive to light, moist mucus membranes, trachea midline, no thyromegaly Chest/Pulm: No respiratory distress, symmetrical chest expansion, clear breath sounds throughout Cardiac: RRR, no murmurs noted Abdomen: Negative for ascites and bruising, normoactive bowel sounds, soft, mildly tender to palpation in the BL lower abdominal muhammad without rebound tenderness Musculoskeletal: Symmetrical and without signs of acute trauma, upper and lower extremities with full ROM, no atrophy, spasticity, or flaccidity Extremities: Radial, dorsalis pedis, and posterior tibial pulses are intact and symmetrical, no edema noted in the BL LE's Skin: Warm, dry, no rashes , lesions, or scars noted Neuro: Alert and oriented to person, place, month, year, and president, no focal defects, CN II-XII tested and intact, no tremors noted Psych: No acute distress, calm and cooperative during the exam Results & Data Results & Data Vital Signs (Past 12 Hours) Vital Signs Temp Pulse Resp BP Pulse Ox O2 Del Method 12/01/23 10:00 71 23 132/74 97 Room Air 12/01/23 09:17 68 12 98 Room Air 12/01/23 09:00 73 19 122/71 99 Room Air 12/01/23 08:58 70 12/01/23 08:51 Room Air 12/01/23 08:40 36.4 C L 78 16 130/78 100 Room Air Laboratory Results Abnormal lab results 12/01/23 Range/Units 09:01 WBC 14.89 H (4.8-10.8) K/ul Neut # (Auto) 12.24 H (1.40-6.50) K/uL Hopkins # (Auto) 1.05 H (0.11-0.59) K/uL Creatinine 0.59 L (0.6-1.2) mg/dl BUN/Creatinine Ratio 39.0 H (10-20) Glucose 135 H (70-99(Fasting)) mg/dl Diagnostic Findings Abdomen/Pelvis CTA 12/01/23 09:06 CT ANGIOGRAPHY OF THE ABDOMEN AND PELVIS CLINICAL HISTORY: Multiple episodes of grossly blood stool; syncope. COMPARISON STUDY: Arterial phase images of the liver, spleen, adrenal glands and kidneys Automated exposure control was utilized for the study. A dose lowering technique was utilized adhering to the principles of ALARA. FINDINGS: Lung bases are normal. The caliber of the abdominal aorta is normal. No pathologic right plaque is identified. The celiac axis, superior mesenteric artery, inferior mesenteric artery, renal arteries, bilateral common iliac, internal iliac, external iliac and common femoral arteries are patent. There is no stenosis or dissection within these vessels. There is no aneurysm within the abdomen or pelvis. Arterial phase images of the liver, spleen, adrenal glands, kidneys and pancreas are unremarkable. There is no biliary or pancreatic ductal dilatation. There is no hydronephrosis. There is no evidence for a bowel obstruction. The appendix is normal. There is moderate circumferential wall thickening of the majority of the transverse colon with minimal pericolonic stranding. This wall thickening extends for 13 cm. There is no free air or abscess. No additional sites of bowel wall thickening are present. Pelvic calcifications represent phleboliths. There is no lymphadenopathy. IMPRESSION: 1. Wall thickening of the transverse colon with minimal pericolonic stranding. This suggests a nonspecific colitis which could be infectious, ischemic or inflammatory in etiology. No free air or abscess. A precautionary nonemergent colonoscopy, if not recently performed, is recommended to exclude the unlikely possibility of an underlying mucosal lesion. 2. No additional sites of bowel wall thickening. Normal appendix. No bowel obstruction. 3. Normal caliber abdominal aorta with patent branch vessels. No dissection or aneurysm within the abdomen or pelvis. ACT 112: Negative or not required by law. Electronically signed by: Gaudencio Prasad M.D. 12/01/2023 10:08 AM Chest X-Ray 12/01/23 09:06 XR chest 1V portable CLINICAL HISTORY: Syncope. COMPARISON STUDY: Chest radiograph August 19, 2020. FINDINGS: Lung volumes are normal. Lungs are clear. There is no pneumothorax or pleural effusion. Cardiac size is normal. Mediastinal contours are normal. There is no evidence for pulmonary edema. IMPRESSION: No acute cardiopulmonary findings. ACT 112: Negative or not required by law. Electronically signed by: Gaudencio Prasad M.D. 12/01/2023 9:43 AM ECG Additional Comments: Normal sinus rhythm Normal ECG When compared with ECG of 19-AUG-2020 19:26, No significant change was found Code Status & VTE Plan Code Status Full code VTE Prophylaxis Plan VTE Prophylaxis will be ordered: Yes Supervising Physician Co-Signing Physician Notes I personally saw and examined the patient. I verified all hightower points and agree with Mahamed Erickson PA-C with the following exceptions and/or additions: 53 year old female presents to the ER diarrhea, hematochezia and syncope O/E HS RRR, no murmurs, Chest CTAB, lower abdominal pain on deep palpation without guarding or rebound tenderness, BS hypoactive A/P Colitis - likely direct toxin effect of food eaten, no large vessel ischemia/stenosis on CTA, stool PCR pending, IV fluids, NPO, likely can advance diet tomorrow, no indication for IV antibiotics Syncope - appears to be vagal with hypovolemia, no further workup required unless recurrent Otherwise as above PG Care Time/CCT Total # of Minutes Spent Total Time Spent with Patient: Total time spent is greater than 50% in coordination of care (as documented) at patient's floor/unit and/or counseling patient: C[place] [address] INT INP/OBS CARE 2/55MIN Patient Type Established Medical Decision Making High Complexity Diagnoses Syncope and collapse R55 Colitis K52.9 Bright red rectal bleeding K62.5 Abdominal pain R10.9 Prediabetes R73.03 Restless legs G25.81
[2023-12-01] MEDS: ACETAMINOPHEN 1,000 MG/100 ML VIAL IV STA (12:58)
[2023-12-01] MEDS: LACTATED RINGER'S 1,000 ML IV SCH (13:00)
[2023-12-01] MEDS ORDERED: DEXTROSE 50% 50 ML SYRINGE IV PRN (13:04)
[2023-12-01] MEDS ORDERED: GLUCAGON FOR INJ 1 MG VIAL SQ PRN (13:04)
[2023-12-01] MEDS ORDERED: GLUCOSE 10 TAB/TUBE PO PRN (13:04)
[2023-12-01] MEDS ORDERED: GLUCOSE 40% GEL 15 GM TUBE PO PRN (13:04)
[2023-12-01] MEDS ORDERED: CARBOHYDRATES FOR HYPOGLYCEMIA PO PRN (13:04)
[2023-12-01] MEDS: INSULIN ASPART PER UNIT CHARGE SC SCH (14:11)
[2023-12-01 16:04] LABS: Basophils # (auto) 0.03 K/uL (0.00-0.20); Basophils % (auto) 0.2 %; Eosinophils # (auto) 0.03 K/uL (0.00-0.50); Eosinophils % (auto) 0.2 %; Hematocrit (blood only) 35.8 % (37.0-47.0); Hemoglobin 12.2 g/dl (12.0-16.0); Immature Granulocytes # (auto) 0.06 K/uL (0.01-0.20); Immature Granulocytes % (auto) 0.4 %; Lymphocytes # (auto) 2.11 K/uL (1.20-3.40); Lymphocytes % (auto) 14.2 %; Mean Corpuscular Hemoglobin 31.8 pg (25.0-34.0); Mean Corpuscular Hgb Conc 34.1 g/dL (32.0-36.0); Mean Corpuscular Volume 93.2 fL (80.0-100.0); Mean Platelet Volume 9.7 fL (9.4-12.4); Monocytes # (auto) 1.11 K/uL (0.11-0.59); Monocytes % (auto) 7.5 %; Neutrophils # (auto) 11.55 K/uL (1.40-6.50); Neutrophils % (auto) 77.5 %; Platelet Count 276 K/uL (130-400); RDW Coefficient of Variation 11.9 % (11.5-14.5); RDW Standard Deviation 40.7 fL (36.4-46.3); Red Blood Count 3.84 M/uL (4.20-5.40); White Blood Count 14.89 K/ul (4.8-10.8)
[2023-12-01] MEDS: ACETAMINOPHEN 325 MG TAB PO PRN (17:23)
[2023-12-02 06:51] LABS: Basophils # (auto) 0.05 K/uL (0.00-0.20); Basophils % (auto) 0.4 %; Eosinophils # (auto) 0.13 K/uL (0.00-0.50); Eosinophils % (auto) 1.1 %; Hematocrit (blood only) 33.9 % (37.0-47.0); Hemoglobin 11.5 g/dl (12.0-16.0); Immature Granulocytes # (auto) 0.03 K/uL (0.01-0.20); Immature Granulocytes % (auto) 0.3 %; Lymphocytes # (auto) 1.99 K/uL (1.20-3.40); Lymphocytes % (auto) 17.2 %; Mean Corpuscular Hemoglobin 31.3 pg (25.0-34.0); Mean Corpuscular Hgb Conc 33.9 g/dL (32.0-36.0); Mean Corpuscular Volume 92.4 fL (80.0-100.0); Monocytes # (auto) 1.03 K/uL (0.11-0.59); Monocytes % (auto) 8.9 %; Neutrophils # (auto) 8.36 K/uL (1.40-6.50); Neutrophils % (auto) 72.1 %; Platelet Count 249 K/uL (130-400); RDW Standard Deviation 40.9 fL (36.4-46.3); Red Blood Count 3.67 M/uL (4.20-5.40); White Blood Count 11.59 K/ul (4.8-10.8)
[2023-12-02 07:07] LABS: Albumin Globulin Ratio 1.7 (0.9-2); BUN Creatinine Ratio 24.5 (10-20); Bilirubin,Total 0.5 mg/dl (0.2-1.0); Calcium 8.8 mg/dl (8.6-10.3); Creatinine Clr Calc Pharmacy 132.4 ml/min; Est GFR (African American) 127.1 ml/min; Est GFR (Non-African American) 109.7 ml/min; Globulin 2.4 gm/dl (2.5-4.0); Magnesium 1.8 mg/dl (1.7-2.4); Potassium 4.1 mmol/L (3.5-5.1); Total Protein 6.4 gm/dl (6.0-8.3)
[2023-12-02 07:18] LABS: Prothrombin Time 11.1 Seconds (9.0-12.0)
[2023-12-02 11:30] LABS: Adenovirus F 40/41 PCR Not Detected (NotDetected); Astrovirus PCR Not Detected (NotDetected); Campylobacter PCR Not Detected (NotDetected); Cryptosporidium PCR Not Detected (NotDetected); Cyclospora cayetanensis PCR Not Detected (NotDetected); Entamoeba histolytica PCR Not Detected (NotDetected); Enteroaggregative E.coli(EAEC) Not Detected (NotDetected); Enteropathogenic E.coli (EPEC) Not Detected (NotDetected); Enterotoxigenic E.coli (ETEC) Not Detected (NotDetected); Giardia lamblia PCR Not Detected (NotDetected); Norovirus GI/GII PCR Not Detected (NotDetected); Plesiomonas shigelloides PCR Not Detected (NotDetected); Rotavirus A PCR Not Detected (NotDetected); Salmonella PCR Not Detected (NotDetected); Sapovirus PCR Not Detected (NotDetected); Shiga-like Toxin E.coli (STEC) Not Detected (NotDetected); Shigella/Enteroinvasive E.coli Not Detected (NotDetected); Vibrio cholerae PCR Not Detected (NotDetected); Vibrio species PCR Not Detected (NotDetected); Yersinia enterocolitica PCR Not Detected (NotDetected)
--- NOTE | 2023-12-02 14:46 | Hospitalist Progress Note ---
Date of Service December 02, 2023 Assessment & Plan (1) Colitis: Plan: -CTA of the abd/pelvis noted to have nonspecific thickening in the transverse colon consistent with colitis -Last colonoscopy was on 10/12/23, findings were significant for a 5 mm polyp in the descending colon which was resected and non-bleeding internal hemorrhoids. Likely infectious or NSAID-related colitis, does not have risk factors for ischemic colitis. Reports mother had ulcerative colitis and in her 30s. New onset of IBD is possible, but seems less likely with negative colonoscopy less than 2 mo ago and no history of chronic bowel symptoms. -abdominal pain has improved compared to 1-2 days ago, exam is benign -continue IV fluids, clear liquid diet. Advance diet when pain/blood resolving -monitor H/H, monitor stools. AM CBC -stop NSAIDS -stool biofire pending (2) Syncope and collapse: Plan: -Presented to the ED after sustaining 2 episodes of syncope while or shortly after having bowel movements -Her history is consistent with vasovagal syncope (3) Prediabetes: Plan: -Has been on metformin -Last Hgb A1c on 05/04/23 was 5.9 -hold metformin, PRN aspart (4) Restless legs: Plan: -Continue Requip Admission and Anticipated Discharge Date Admission Date: December 01, 2023 Subjective no further lightheadedness/presyncope crampy abdominal pain - improved compared to prior to admission no nausea had bloody BMs overnight Physical Exam 2 Physical Exam: PHYSICAL EXAMINATION Last 24h vital signs reviewed, see documentation in flowsheet General: comfortable appearing, no distress HEENT: Normocephalic, atraumatic, pupils round and equal, sclerae anicteric, no conjunctival injection, moist mucus membranes Lungs: Normal respiratory effort. Clear to auscultation bilaterally. No RRW Heart: Regular rate and rhythm, no murmurs. No JVD Abdomen: Soft, nontender, nondistended. Bowel sounds present. Extremities: Warm, dry, well-perfused. No extremity edema. Neuro: Alert and oriented x 4, face symmetric, moves 4 extremities well Psych: Normal affect and behavior Results & Data Results & Data Vital Signs (Past 12 Hours) Vital Signs Temp Pulse Pulse Resp BP Pulse Ox O2 Del Method 12/02/23 12:07 36.8 C 69 18 143/84 H 97 Room Air 12/02/23 08:12 36.8 C 70 18 97/58 L 97 Room Air 12/02/23 08:00 92 H 12/02/23 02:56 36.6 C 81 16 105/68 96 Room Air Laboratory Results 12/02/23 06:08 12/02/23 06:08 PG Care Time/CCT Total # of Minutes Spent Total Time Spent with Patient: Total time spent is greater than 50% in coordination of care (as documented) at patient's floor/unit and/or counseling patient: Coding Level of Care Code 02389 SUB INP/OBS CARE 2/35MIN Diagnoses Colitis K52.9 Syncope and collapse R55 Prediabetes R73.03 Restless legs G25.81
[2023-12-02] MEDS: MAGNESIUM CHLORIDE W/CALCIUM 64MG DELAYED REL TAB PO PRN (21:50)
[2023-12-03 07:33] LABS: Basophils # (auto) 0.06 K/uL (0.00-0.20); Basophils % (auto) 0.5 %; Eosinophils # (auto) 0.24 K/uL (0.00-0.50); Eosinophils % (auto) 2.1 %; Hematocrit (blood only) 35.5 % (37.0-47.0); Hemoglobin 11.9 g/dl (12.0-16.0); Immature Granulocytes # (auto) 0.04 K/uL (0.01-0.20); Immature Granulocytes % (auto) 0.4 %; Lymphocytes # (auto) 1.86 K/uL (1.20-3.40); Lymphocytes % (auto) 16.5 %; Mean Corpuscular Hemoglobin 31.1 pg (25.0-34.0); Mean Corpuscular Hgb Conc 33.5 g/dL (32.0-36.0); Mean Corpuscular Volume 92.7 fL (80.0-100.0); Mean Platelet Volume 9.6 fL (9.4-12.4); Monocytes # (auto) 0.77 K/uL (0.11-0.59); Monocytes % (auto) 6.8 %; Neutrophils % (auto) 73.7 %; Platelet Count 251 K/uL (130-400); RDW Coefficient of Variation 11.8 % (11.5-14.5); RDW Standard Deviation 39.8 fL (36.4-46.3); Red Blood Count 3.83 M/uL (4.20-5.40); White Blood Count 11.27 K/ul (4.8-10.8)
[2023-12-03 07:56] LABS: BUN Creatinine Ratio 16.1 (10-20); Calcium 9.1 mg/dl (8.6-10.3); Creatinine Clr Calc Pharmacy 115.8 ml/min; Est GFR (African American) 121.7 ml/min; Potassium 3.7 mmol/L (3.5-5.1)
--- NOTE | 2023-12-03 17:56 | Discharge Summary ---
Date of Service December 03, 2023 Admission HPI Per Admitting Provider Samra Bello is a 53 year old female with a PMH significant for pre- diabetes and arthritis who presented to the [facility] ED on 12/01/23 with complaints of multiple episodes of bloody bowel movements, low abdominal pain, and syncope x 2 at home. She remained stable in the ED. Labs were significant for a leukocytosis of 14 with neutrophil predominance of 12 nut otherwise WNL. Chest xray was read as negative for acute findings. CTA of the abd/pelvis was read as 1. Wall thickening of the transverse colon with minimal pericolonic stranding. This suggests a nonspecific colitis which could be infectious, ischemic or inflammatory in etiology. No free air or abscess. A precautionary nonemergent colonoscopy, if not recently performed, is recommended to exclude the unlikely possibility of an underlying mucosal lesion. 2. No additional sites of bowel wall thickening. Normal appendix. No bowel obstruction. 3. Normal caliber abdominal aorta with patent branch vessels. No dissection or aneurysm within the abdomen or pelvis. Prior to admission the patient was given 40 mg IV pantoprazole and 1L NSS. At the time of the exam the patient was lying in bed in no acute distress with her sitting bedside, history was obtained from both. Last night then went out for dinner, the patient had a beer battered fish meal. Shortly after finishing her meal the patient started to develop BL lower abdominal pain and the sensation that she needed to have a bowel movement. Shortly after arriving home she had to run to the bathroom. While on the toilet she had a large, formed bowel movement. She states that the end of her BM looked darker than normal but denies any bright red blood. Shortly after having the bowel movement, and while still sitting on the toilet the patient started to experience severe lower abdominal pain, feeling hot/flushes, and became nauseous. She grabbed a ceramic trash can as she thought she was going to vomit. She then lost consciousness and fell forward off the toilet. She believes that she hit her head off the ceramic trash can. Her found her on the bathroom floor shortly after he entered their home. She woke up quickly and was without seizure like symptoms or postictal state. Overnight she had two loose bowel movements with associated BL lower abdominal pain. She states that both of these loose bowel movements had bright red blood in the toilet. She had another syncopal episode exactly like the first, after her second bowel movement. Her last bowel movement, around 0300 this am had a large blood clot. She has been taking approximately 1800 mg of Ibuprofen daily, for the past 30 days due to pain from plantar fascitis. She denies symptoms such as changes in vision, hearing, taste, smell, unilateral weakness, paresthesias, chest pain, SOB, heart palpitations, cough, vomiting, hemoptysis, dysuria, hematuria, LE swelling, and recent trauma. She has had episodes of syncope in the past as well. These have always been associated with episodes of pain or severe stress/anxiety. They deny the patient having sudden episodes of syncope without symptoms prior. Her only complaint at this time is a moderate headache. -Last colonoscopy was on 10/12/23, findings were significant for a 5 mm polyp in the descending colon which was resected and non-bleeding internal hemorrhoids. Principal Diagnosis vasovagal syncope, acute colitis - infectious vs NSAID related Discharge Exam PHYSICAL EXAMINATION Last 24h vital signs reviewed, see documentation in flowsheet General: comfortable appearing, no distress HEENT: Normocephalic, atraumatic, pupils round and equal, sclerae anicteric, no conjunctival injection, moist mucus membranes Lungs: Normal respiratory effort. Clear to auscultation bilaterally. No RRW Heart: Regular rate and rhythm, no murmurs. No JVD Abdomen: Soft, nontender, nondistended. Bowel sounds present. Formed brown stool in commode with red tinge surrounding Extremities: Warm, dry, well-perfused. No extremity edema. Neuro: Alert and oriented x 4, face symmetric, moves 4 extremities well Psych: Normal affect and behavior Discharge Data Allergies Allergy/AdvReac Type Severity Reaction Status Date / Time Penicillins Allergy Intermediate Hives Verified 12/01/23 09:26 cortisone Allergy RASH/RESTLESSNESS/NUMBNESS Verified 12/01/23 09:26 OF LIPS & NOSE Consultations 12/01/23 12:04 ED Decision to Admit Stat Ordered Studies 12/01/23 09:06 CTA abdomen pelvis w con [CT angio abdomen pelvis w con] Stat Abdomen/Pelvis CTA 12/01/23 09:06 CT ANGIOGRAPHY OF THE ABDOMEN AND PELVIS CLINICAL HISTORY: Multiple episodes of grossly blood stool; syncope. COMPARISON STUDY: Arterial phase images of the liver, spleen, adrenal glands and kidneys Automated exposure control was utilized for the study. A dose lowering technique was utilized adhering to the principles of ALARA. FINDINGS: Lung bases are normal. The caliber of the abdominal aorta is normal. No pathologic right plaque is identified. The celiac axis, superior mesenteric artery, inferior mesenteric artery, renal arteries, bilateral common iliac, internal iliac, external iliac and common femoral arteries are patent. There is no stenosis or dissection within these vessels. There is no aneurysm within the abdomen or pelvis. Arterial phase images of the liver, spleen, adrenal glands, kidneys and pancreas are unremarkable. There is no biliary or pancreatic ductal dilatation. There is no hydronephrosis. There is no evidence for a bowel obstruction. The appendix is normal. There is moderate circumferential wall thickening of the majority of the transverse colon with minimal pericolonic stranding. This wall thickening extends for 13 cm. There is no free air or abscess. No additional sites of bowel wall thickening are present. Pelvic calcifications represent phleboliths. There is no lymphadenopathy. IMPRESSION: 1. Wall thickening of the transverse colon with minimal pericolonic stranding. This suggests a nonspecific colitis which could be infectious, ischemic or inflammatory in etiology. No free air or abscess. A precautionary nonemergent colonoscopy, if not recently performed, is recommended to exclude the unlikely possibility of an underlying mucosal lesion. 2. No additional sites of bowel wall thickening. Normal appendix. No bowel obstruction. 3. Normal caliber abdominal aorta with patent branch vessels. No dissection or aneurysm within the abdomen or pelvis. ACT 112: Negative or not required by law. Electronically signed by: Gaudencio Prasad M.D. 12/01/2023 10:08 AM Chest X-Ray 12/01/23 09:06 XR chest 1V portable CLINICAL HISTORY: Syncope. COMPARISON STUDY: Chest radiograph August 19, 2020. FINDINGS: Lung volumes are normal. Lungs are clear. There is no pneumothorax or pleural effusion. Cardiac size is normal. Mediastinal contours are normal. There is no evidence for pulmonary edema. IMPRESSION: No acute cardiopulmonary findings. ACT 112: Negative or not required by law. Electronically signed by: Gaudencio Prasad M.D. 12/01/2023 9:43 AM 12/03/23 07:03 12/03/23 07:03 Hospital Course (1) Colitis: 53 y/o presented with abdominal pain and bloody stool, two episodes of syncope associated with bowel movements -CTA of the abd/pelvis noted to have nonspecific thickening in the transverse colon consistent with colitis -Last colonoscopy was on 10/12/23, findings were significant for a 5 mm polyp in the descending colon which was resected and non-bleeding internal hemorrhoids. Likely infectious or NSAID-related colitis, does not have risk factors for ischemic colitis. Reports mother had ulcerative colitis and in her 30s. New onset of IBD is possible, but seems unlikely with negative colonoscopy less than 2 mo ago, resolution with supportive care, and no history of chronic bowel symptoms. -treated with bowel rest, clear liquid diet. 12/02 had formed brown stool in AM with blood tinge around it. Advanced diet and tolerated low fiber diet prior to discharge -abdominal pain has resolved -stop NSAIDS -stool biofire was negative but not collected until 12/01 when diarrhea had resolved -follow up with Dr. Yin (2) Syncope and collapse: -Presented to the ED after sustaining 2 episodes of syncope while or shortly after having bowel movements -Her history is consistent with vasovagal syncope, further workup not indicated at this time -no events on telemetry, no cardiac history (3) Prediabetes: -Has been on metformin -Last Hgb A1c on 05/04/23 was 5.9 (4) Restless legs: -Continue Requip Total Time Total Time Spent Total Time Spent (In Minutes): 25 minutes Discharge Plan Discharge Items Patient Disposition: Home - Self-Care Reason For Visit: colitis Discharge Diagnosis: acute colitis Condition on Discharge: Good Activity: Resume your previous activity Non-emergency contact: Primary Care Provider and Occ Therapy Asst Call non-emergency contact if: you have any medication questions, your symptoms worsen and you have a fever Follow-up/Referrals: Spencer Yin DO [Physician] - Florida Hernandez DO [Primary Care Provider] - Diet: Low Fiber Addtl Attending Provider Instructions: You were treated for an episode of colitis. This caused abdominal pain and bloody stool. You passed out because of something called vasovagal syncope - this is a nervous system reaction that can be triggered by GI distress like diarrhea and abdominal pain. Further testing is not necessary. Infectious colitis is the most common cause. Many bacteria such as E. coli, Campylobacter, Samonella, Shigella can cause this. This typically resolves without specific treatment. Stool testing for pathogens was negative, however, it still could have been an infection. It is also possible that the colitis was induced by NSAIDs (ibuprofen). Its a good idea to avoid ibuprofen and aleve/naproxen orally for now. Topical nsaid (like diclofenac gel) is okay and will not affect your GI tract. Acetaminophen (tylenol) is also safe for your GI tract. There is a small chance this could be first presentation of inflammatory bowel disease, given your family history. That seems unlikely however given recent colonoscopy and flare would not typically resolve on its own. Please schedule follow up with Dr. Yin. Follow low fiber diet for 1-2 weeks until bowel habits return to normal. This includes bland, "white" carbohydrates, lean meats and fish, well cooked vegetables. Seek medical attention if you have worsening symptoms like recurrent bloody diarrhea, worsening abdominal pain or fever. It was a pleasure taking care of you in the hospital Demetrice Xie MD Pending Studies at Discharge: No Stand-Alone Forms: [facility] [employer] Smoking Cessation Medications and DC Order Prescriptions: Continued omeprazole 20 mg capsule,delayed release(DR/EC) 20 mg PO DAILY Qty: 90 0RF acetaminophen [Tylenol Extra Strength] 500 mg Tablet 1,000 mg PO Q6H PRN (Reason: Pain) multivitamin Tablet 1 tab PO DAILY metformin 500 mg Tablet 500 mg PO BID Held magnesium 250 mg Tablet 250 mg PO HS Hold Instructions: Resume on 12/17/23. consider holding if you still have loose stools - magnesium can contribute to diarrhea. You might tolerate a "slow mag" extended release magnesium, we gave that kind in the hospital Discontinued ibuprofen 200 mg Tablet 600 mg PO TID Discharge Orders: Discharge Order (Routine); Ordered 12/03/23 Ordered By: Demetrice Flynn/Other Patient Handouts: ED Fainting, Vagal Reaction Admission Data Admit Date/Time: 12/01/23 12:23 Attending Provider: Demetrice Xie Admit Provider: Leonard Avendano Primary Care Provider: Florida Hernandez Other Providers: Leonard Avendano Coding Level of Care Code 54646 IN/OBS DISCH 30 MIN/LESS Diagnoses Colitis K52.9 Syncope and collapse R55 Prediabetes R73.03 Restless legs G25.81
== END 2023-12-03 18:49 | disposition home or self-care (01) | DRG 392 ==
LOC: ED 08:31 → INTOOBSV 12:23 → 2N 12:37 → SUATTDRO 12:37 → 2N 13:27